=== PATIENT | female | born 1965 | race African-American/Black ===

== ENCOUNTER 2016-08-23 15:23 | Emergency (ER) | payer BC ==
--- NOTE | ~2016-08-23 | CR72 ---
[facility] A Service of [facility] & [facility] RADIOLOGY TEXT RESULTS PATIENT: SUSAN LEE LOCATION: [facility] : [birth year] UNIT #: [id number] AGE: [address]: Alyce Turcios MD SEX: F ORDER DR: [id number] [facility] [address] [place], [place] [address] [id number] E MR#: [id number] Acc #: [id number] NAME: SUSAN LEE : 1965 SEX: F STUDY DATE/TIME: 08/23/2016 14:21 UNIT: [facility] ROOM: STUDY DESCRIPTION: CR Chest Single View Portable Attending Physician: Alyce Turcios M.D. Ordering Physician: Alyce Turcios M.D. Primary Care Physician: Vijay Stafford M.D. MEDICAL IMAGING REPORT This report is preliminary unless electronic signature is present EXAM Portable chest. DATE OF EXAM 08/23/2016 HISTORY Shortness of air today. FINDINGS The cardiac size and pulmonary vascularity are normal. No airspace infiltrates or effusions. IMPRESSION Negative. Dictated by... Dipesh Dyer M.D. THIS IS AN ELECTRONICALLY VERIFIED REPORT Dipesh Dyer M.D. at 08/23/2016 11:28 PM WILFRED/yane TD: 08/23/2016 22:25 JOB #: [id number] MEDICAL IMAGING REPORT COPY
[~2016-08-23 15:23] MED LIST: PANTOPRAZOLE SO40 MG PO; PEPCID AC20 M2 PO
== END 2016-08-23 15:25 | disposition home or self-care (01) ==
LOC: CED 15:23
DX: K21.9 Gastro-esophageal reflux disease without esophagitis (principal); Z88.5 Allergy status to narcotic agent
CPT/HCPCS: 71010; 99283

== ENCOUNTER → 2016-09-13 | Outpatient (CLI) | payer BC ==
--- NOTE | ~2016-09-13 | ST ---
Unit #: [id number] #: [id number] Patient: SUSAN LEE [id number] [address] [address] [id number] O MR#: [id number] NAME: SUSAN LEE : 1965 SEX: F STUDY DATE/TIME: 09/13/2016 UNIT: [facility] ROOM: STUDY DESCRIPTION: Stress ECG Attending Physician: Charles Oneil M.D. Referring Physician: Charles Oneil M.D. Primary Care Physician: Charles Oneil M.D. CARDIOLOGY REPORT PROCEDURE PERFORMED Stress ECG. INDICATION Shortness of breath. SUMMARY The patient exercised on Waldemar protocol to maximal effort. Patient stopped with typical exercise-related shortness of breath but no chest pain. Patient exercised 7 minutes on a Waldemar protocol. Heart rate increased from 99 to 172 and blood pressure 120/78 to 142/90. Heart rate was 102%. The rest and stress ECG showed no diagnostic ST shifts. There were inverted T waves in V3 and V4 at rest, which became pseudo-normalized with stress in V3 and V4. There were no acute ST changes and no dysrhythmias. IMPRESSION 1. Fair exercise capacity based on the patient's age. 2. Normal heart rate and blood pressure responses. 3. Stress ECG is probably negative for ischemia. The pseudonormalization of T waves is a nonspecific marker and does not clearly indicate ischemia. Dictated by... Rita Levy/jacqueline TD: 09/13/2016 13:10 JOB #: [id number] CARDIOLOGY REPORT Page 1 of 1 X Cuco Moody MD CARDIOLOGY REPORT
== END | disposition home or self-care (01) ==
LOC: CEKG 09:21
DX: R07.89 Other chest pain (principal); R06.02 Shortness of breath
CPT/HCPCS: 93017

== ENCOUNTER → 2016-11-05 | Outpatient (CLI) | payer BC ==
--- NOTE | ~2016-11-05 | CT16 ---
[facility] A Service of [facility] & [facility] RADIOLOGY TEXT RESULTS PATIENT: SUSAN LEE [facility] 65 UNIT #: [id number] AGE: [address]: Carol Baetty MD SEX: F ORDER DR: [id number] [facility] [address] [place], [place] [address] [id number] O MR#: [id number] Acc #: [id number] NAME: SUSAN LEE : 1965 SEX: F STUDY DATE/TIME: 11/05/2016 15:21 UNIT: [facility] ROOM: STUDY DESCRIPTION: CT Angio Chest for PE Attending Physician: Carol Beatty M.D. Referring Physician: Carol Beatty M.D. Ordering Physician: Carol Beatty M.D. Primary Care Physician: Charles Oneil M.D. MEDICAL IMAGING REPORT This report is preliminary unless electronic signature is present EXAM CT angiography chest for PE. HISTORY Short of air. Feels like I have to breathe hardware times [id number] months to catch my breath. TECHNIQUE This CT exam was performed with one or more of the following radiation dose reduction techniques: automatic exposure control, adjustment of mA and/or kV according to patient size, and iterative reconstruction. FINDINGS CT pulmonary angiography performed with intravenous administration 100 mL Isovue-370. Three-dimensional reconstructions performed through pulmonary arteries. No prior CTs of chest for comparison. Thyroid unremarkable. Some minimal residual thymic tissue in the anterior mediastinum. No axillary mediastinal or hilar adenopathy. Heart upper limits of normal in size. No pleural effusions. A 7 mm cyst segment 2 of the liver. A 1.2 cm subcapsular cyst right hepatic lobe probably in segment 7. No suspicious hepatic parenchymal findings. The visualized portions of the gallbladder, spleen, pancreas, adrenal glands, kidneys unremarkable. Esophagus, stomach, visualized segments of small bowel and colon unremarkable. Pulmonary parenchyma shows no acute pulmonary disease. No suspicious nodule. Pulmonary arteries well opacified. No PE. No aortic aneurysm or dissection. Visualized aortic branch vessels appear patent. The bony structures are unremarkable. [facility] A Service of [facility] & [facility] RADIOLOGY TEXT RESULTS PATIENT: SUSAN LEE LOCATION: [facility] : 65 UNIT #: [id number] AGE: [address]: Carol Beatty MD SEX: F ORDER DR: IMPRESSION 1. No PE. 2. No evidence of aortic aneurysm or dissection. 3. No acute pulmonary disease seen. No pleural effusion or pneumothorax. No suspicious nodule. 4. Heart normal to upper limits of normal in size. 5. Small hepatic cyst. No suspicious hepatic parenchymal abnormality. 6. Remainder of visualized upper abdomen unremarkable. Dictated by... Gen Ya M.D. THIS IS AN ELECTRONICALLY VERIFIED REPORT Gen Ya M.D. at 11/05/2016 10:50 PM Vidhya TD: 11/05/2016 22:30 JOB #: [id number] MEDICAL IMAGING REPORT Page 1 of 1 COPY
== END | disposition home or self-care (01) ==
LOC: CCAT 14:30
DX: R07.9 Chest pain, unspecified (principal); R06.02 Shortness of breath; K76.89 Other specified diseases of liver
CPT/HCPCS: 71275; Q9967